=== PATIENT | male | born 1955 | race Caucasian/White ===

== ENCOUNTER → 2016-04-24 | Outpatient (CLI) | payer BC ==
[~2016-04-24] VITALS: Ht 174 cm; Wt 133.0 kg
[~2016-04-24] MED LIST: AMLO10TA2 PO; ASPEC81 PO; ATOR-22 PO; AZEL30SP NAE; CETI10TA10 PO; DULA1INJ SC; FLM4 PO; GABA400C PO; GLUCTAB7 PO; INDSR/120 PO; INSU1.2I SQ; LISI20TA3 PO; MONT1TAB3 PO; NRN600 PO; NVLGI/PEN SQ; PARO1TAB29 PO; PRLSR20 PO; SIMV20TA2 PO; TOPI100T20 PO; TRAM-10 PO
[2016-04-24 13:26] VITALS: BP 154/85; PULSE 92; Ht 174 cm; Wt 133.0 kg
== END | disposition home or self-care (01) ==
LOC: C.NEUR 11:58
PROVIDERS: ATTEND Internal Medicine Pulmonary Disease
DX: G47.33 Obstructive sleep apnea (adult) (pediatric) (principal)

== ENCOUNTER → 2016-06-22 | Outpatient (CLI) | payer BC ==
[2016-06-22 13:07] LABS: ESTIMATED AVERAGE GLUCOSE 169 mg/dl; HA1C FLAG Normal (Normal)
== END | disposition home or self-care (01) ==
LOC: C.LAB1850 11:10
PROVIDERS: ATTEND Nurse Practitioner Family
DX: E11.42 Type 2 diabetes mellitus with diabetic polyneuropathy (principal)

== ENCOUNTER → 2016-06-25 | Outpatient (CLI) | payer BC ==
--- NOTE | 2016-06-25 11:19 | DIAGNOSTIC IMAGING REPORT ---
LEFT TIBIA/FIBULA 2 VIEWS CLINICAL HISTORY: Left ANKLE/LOWER LEG PAIN COMPARISON STUDY: None. FINDINGS: No fracture or dislocation within the left tibia or fibula. There is mild diffuse soft tissue swelling. Basilar calcifications are noted. No radiopaque foreign bodies. IMPRESSION: Mild diffuse soft tissue swelling within the left lower leg. No fractures. Electronically signed by: Eugene Sutton M.D. 06/25/2016 11:18 AM Dictated Date/Time: 06/25/2016 11:15 AM
--- NOTE | 2016-06-25 11:20 | DIAGNOSTIC IMAGING REPORT ---
LEFT ANKLE MIN 3 VIEWS CLINICAL HISTORY: LT ANKLE PAIN COMPARISON: December 2005 DISCUSSION: There are multiple corticated fragments adjacent to medial malleolus. These are felt to be old. There is a nondisplaced avulsion of the lateral malleolus, likely subacute or old. There is lateral soft tissue swelling. There are few tiny bony densities adjacent the lateral malleolar tip likely old. There is a plantar calcaneal spur. There are vascular calcifications present. There is lateral soft tissue swelling. IMPRESSION: 1. Interval development of a sliver-like avulsion at the lateral malleolar tip. I would favor this being subacute or old. 2. Chronic changes adjacent to the medial malleolus 3. No evidence of dislocation 4. Soft tissue swelling Electronically signed by: Jeramie Ruvalcaba M.D. 06/25/2016 11:18 AM Dictated Date/Time: 06/25/2016 11:13 AM
== END | disposition home or self-care (01) ==
LOC: C.RDSM 13:51
PROVIDERS: ATTEND Physical Medicine & Rehabilitation Sports Medicine
DX: R52 Pain, unspecified (principal); S82.64XA Nondisplaced fracture of lateral malleolus of right fibula, initial encounter for closed fracture; X58.XXXA Exposure to other specified factors, initial encounter; M79.9 Soft tissue disorder, unspecified

== ENCOUNTER → 2016-06-26 | Outpatient (CLI) | payer BC ==
[2016-06-26 18:50] LABS: RATIO 14.3 mcg/mg (0-30.0)
== END | disposition home or self-care (01) ==
LOC: C.LABSPEC 17:55
PROVIDERS: ATTEND Nurse Practitioner Family
DX: E11.42 Type 2 diabetes mellitus with diabetic polyneuropathy (principal)

== ENCOUNTER → 2016-07-09 | Outpatient (CLI) | payer BC | END | disposition home or self-care (01) | LOC: C.RDSM 07:07 | PROVIDERS: ATTEND Physical Medicine & Rehabilitation Sports Medicine | DX: M25.561 Pain in right knee (principal) ==

== ENCOUNTER → 2016-08-31 | Outpatient (CLI) | payer BC ==
--- NOTE | 2016-08-31 11:08 | DIAGNOSTIC IMAGING REPORT ---
FACIAL BONES MIN 3 VIEWS RTN CLINICAL HISTORY: Facial pain status post trauma COMPARISON STUDY: No previous studies for comparison. FINDINGS: There is no orbital emphysema. No facial fractures are visualized on conventional radiographic imaging. On the basis, the right zygomatic arch is not well demonstrated. IMPRESSION: No facial fractures identified. Electronically signed by: Jeramie Ruvalcaba M.D. 08/31/2016 11:06 AM Dictated Date/Time: 08/31/2016 11:05 AM
[2016-08-31 13:01] LABS: BASO % 0.7 %; BASO ABS # 0.04 K/uL (0-0.2); COMPLETE YES; EOS % 2.3 %; HEMATOCRIT 40.4 % (42-52); IG% 0.2 %; LYMPH % 9.6 %; LYMPH ABS # 0.59 K/uL (1.2-3.4); MEAN CELL VOLUME 90.8 fL (80-100); MEAN CORPUSCULAR HEMOGLOBIN 30.1 pg (25-34); MEAN CORPUSCULAR HGB CONC 33.2 g/dl (32-36); MEAN PLATELET VOLUME 11.1 fL (7.4-10.4); MONO % 9.6 %; NEUT % 77.6 %; PLATELET COUNT 227 K/uL (130-400); RED BLOOD COUNT 4.45 M/uL (4.7-6.1); WHITE BLOOD COUNT 6.15 K/uL (4.8-10.8)
[2016-08-31 13:20] LABS: LYME DISEASE AB IGG NEG (NEG)
[2016-08-31 13:23] LABS: LYME DISEASE AB IGM NEG (NEG)
[2016-08-31 16:13] LABS: ALT/SGPT 35 U/L (12-78); AST/SGOT 46 U/L (15-37); BLOOD UREA NITROGEN 17 mg/dl (7-18); BUN/CREATININE RATIO 12.3 (10-20); CALCIUM 8.8 mg/dl (8.5-10.1); CARBON DIOXIDE 22 mmol/L (21-32); CHLORIDE 106 mmol/L (98-107); GLUCOSE 163 mg/dl (70-99); SODIUM 137 mmol/L (136-145)
[2016-08-31 16:30] LABS: ALB/GLOB RATIO 0.8 (0.9-2); ALKALINE PHOSPHATASE 85 U/L (45-117); CHOLESTEROL 118 mg/dl (0-200); CHOLESTEROL/HDL RATIO 2.7; HDL CHOLESTEROL 43 mg/dl; LDL CHOLESTEROL CALCULATED 37 mg/dl; PROSTATE SPECIFIC ANTIGEN 0.532 ng/ml (0.000-4.000); TRIGLYCERIDES 188 mg/dl (0-150); VERY LOW DENSITY LIPOPROT CALC 38 mg/dl
== END | disposition home or self-care (01) ==
LOC: C.RAD1850 10:36
PROVIDERS: ATTEND Physician Assistant Medical
DX: S00.81XA Abrasion of other part of head, initial encounter (principal); X58.XXXA Exposure to other specified factors, initial encounter; E78.5 Hyperlipidemia, unspecified; R39.9 Unspecified symptoms and signs involving the genitourinary system; R29.898 Other symptoms and signs involving the musculoskeletal system; E55.9 Vitamin D deficiency, unspecified

== ENCOUNTER → 2016-09-03 | Outpatient (CLI) | payer BC ==
[2016-09-03 13:24] LABS: URINE APPEARANCE CLEAR (CLEAR); URINE BILIRUBIN NEG (NEG); URINE COLOR YELLOW; URINE NITRITE NEG (NEG); URINE SPECIFIC GRAVITY 1.009 (1.000-1.030); UROBILINOGEN NEG (NEG)
[2016-09-03 13:39] LABS: MANUAL MICROSCOPIC REQUIRED? NO; REVIEW REQ? NO
== END | disposition home or self-care (01) ==
LOC: C.LABSPEC 12:06
PROVIDERS: ATTEND Physician Assistant Medical
DX: E55.9 Vitamin D deficiency, unspecified (principal); R29.898 Other symptoms and signs involving the musculoskeletal system; R39.9 Unspecified symptoms and signs involving the genitourinary system

== ENCOUNTER → 2016-09-04 | Outpatient (CLI) | payer BC ==
[2016-09-04 17:36] LABS: BLOOD UREA NITROGEN 13 mg/dl (7-18); BUN/CREATININE RATIO 10.8 (10-20); CALCIUM 9.3 mg/dl (8.5-10.1); CARBON DIOXIDE 27 mmol/L (21-32); CHLORIDE 108 mmol/L (98-107); GLUCOSE 177 mg/dl (70-99); SODIUM 140 mmol/L (136-145)
== END | disposition home or self-care (01) ==
LOC: C.LABBFT 11:27
PROVIDERS: ATTEND Physician Assistant Medical
DX: R74.8 Abnormal levels of other serum enzymes (principal)

== ENCOUNTER → 2016-09-27 | Outpatient (CLI) | payer BC ==
[2016-09-27 12:33] LABS: ESTIMATED AVERAGE GLUCOSE 163 mg/dl; HA1C FLAG Normal (Normal)
== END | disposition home or self-care (01) ==
LOC: C.LABBFT 10:01
PROVIDERS: ATTEND Physician Assistant Medical
DX: R79.89 Other specified abnormal findings of blood chemistry (principal); E11.39 Type 2 diabetes mellitus with other diabetic ophthalmic complication

== ENCOUNTER → 2016-10-16 | Outpatient (CLI) | payer BC ==
[~2016-10-16] VITALS: Ht 174 cm; Wt 131.4 kg
[2016-10-16 12:54] VITALS: BP 141/86; PULSE 91; Ht 174 cm; Wt 131.4 kg
== END | disposition home or self-care (01) ==
LOC: C.NEUR 12:00
PROVIDERS: ATTEND Internal Medicine Pulmonary Disease
DX: G47.33 Obstructive sleep apnea (adult) (pediatric) (principal); E66.01 Morbid (severe) obesity due to excess calories

== ENCOUNTER → 2016-12-13 | Day surgery (SDC) | payer BC, OTHER ==
[2016-11-20 11:19] VITALS: Ht 174 cm; Wt 125.9 kg
[~2016-12-13] VITALS: Ht 174 cm; Wt 125.9 kg
[~2016-12-13] MED LIST changes: -ATOR-22 PO; -DULA1INJ SC; -GABA400C PO; +LIDOCAINE HCL 1% MPF 5 ML VIAL ONE; +SODIUM CHLORIDE 0.9% INJ 10 ML VIAL ONE
--- NOTE | 2016-12-13 12:57 | History & Physical Bridge - [place] ---
H&P Re-Evaluation Bridge Note: I have examined the patient, reviewed the History & Physical and in the interval since the performance of the History & Physical I have noted the following changes of clinical significance: No changes noted
[2016-12-13 13:20] VITALS: TEMP 36.6
--- NOTE | 2016-12-13 13:30 | Discharge Instructions ---
Discharge Instructions Date of Service Dec 13, 2016. Visit Reason for Visit: Lumbar Disc Displacement Discharge Discharge Diagnosis / Problem: low back pain Discharge Goals Goal(s): Decrease discomfort, Improve function Activity Recommendations Activity Limitations: resume your previous activity Anesthesia . Post Anesthesia Instructions: If you have had General Anesthesia or IV Sedation: * Do not drive today. * Resume driving when surgeon permits. * Do not make important decisions or sign legal documents today. * Call surgeon for: 1. Temperature elevations greater than 101 degrees F. 2. Uncontrollable pain. 3. Excessive bleeding. 4. Persistent nausea and vomiting. 5. Medication intolerance (nausea, vomiting or rash). * For nausea and vomiting use only clear liquids such as: tea, soda, bouillon until nausea subsides, then gradually increase diet as tolerated. * If you have any concerns or questions, call your surgeon's office. If physician is unavailable and it is an emergency, call 911 or go to the nearest emergency room. . Diet Recommendations Recommended Home Diet: resume previous diet Procedures Procedures Performed: CAUDAL EPIDURAL STEROID INJECTION Pending Studies Studies pending at discharge: no Medical Emergencies . Who to Call and When: Medical Emergencies: If at any time you feel your situation is an emergency, please call 911 immediately. . Non-Emergent Contact Non-Emergency issues call your: Specialist . . "Provider Documentation" section prepared by Devon Watson. .
[2016-12-13 13:45] VITALS: BP 128/79; PULSE 82; O2SAT 95
--- NOTE | 2016-12-13 13:54 | OPERATIVE REPORT ---
DATE OF OPERATION: 12/13/2016 PREOPERATIVE DIAGNOSIS: Post-laminectomy syndrome with a right lower extremity radiculopathy. POSTOPERATIVE DIAGNOSIS: Same. PROCEDURE: Caudal epidural steroid injection under fluoroscopic guidance. INDICATIONS: The patient is a 61-year-old white male who has received caudal epidurals and has done fairly well. He is concerned about a move to [place] and was hoping to get treatment before the move as he is having some increasing pain. PHYSICAL EXAMINATION: Pleasant male seated comfortably. He has normal lower extremity strength. He has no difficulty moving from a sit to stand position. No focal weakness. CONSENT: Verbal and written consent was obtained from the patient. Risks and benefits were reviewed. Risks include but are not limited to epidural abscess, epidural hematoma, allergic reaction, dural puncture. The patient wishes to proceed. PROCEDURE: The patient was taken back to the special procedures room of the [facility] where he was maintained in a prone position. Backside was cleansed with Betadine x3 and a dry sterile dressing was applied. Fluoroscope was used to identify the sacral hiatus and the overlying skin was anesthetized with 4 mL of lidocaine 1% with a 25 gauge 1.5-inch needle. A 25 gauge 3.5 inch spinal needle was then directed under lateral view through the hiatus and into the canal. He then underwent injection after negative aspiration of 40 mg with 4 mL of preservative free sodium chloride. Injection was well tolerated. DISPOSITION: 1. The patient is taken out into the discharge recovery area where he will be discharged home once discharge criteria have been met. 2. Follow up in the [facility] office in 2-4 weeks. I attest to the content of the Intraoperative Record and any orders documented therein. Any exception s are noted below.
== END | disposition home or self-care (01) ==
LOC: X.SURG 12:10
PROVIDERS: ATTEND Physical Medicine & Rehabilitation
DX: M96.1 Postlaminectomy syndrome, not elsewhere classified (principal); M54.16 Radiculopathy, lumbar region; M54.5 Low back pain; G89.29 Other chronic pain